=== PATIENT | female | born 1970 | race Hispanic/Latino ===

== ENCOUNTER 2020-06-27 23:02 | Emergency (ER) | payer OTHER ==
[2020-06-27] MEDS ORDERED: MORPHINE SULFATE 4 MG/1ML SYG ONE (23:32)
[2020-06-27] MEDS ORDERED: ONDANSETRON HCL 4 MG/2 ML VIAL ONE (23:32)
[2020-06-27 23:39] LABS: BASOPHILS % (AUTO) 0.2 % (0.0-5.0); HEMATOCRIT 35.3 % (36-48); LYMPHOCYTES % (AUTO) 10.5 % (21.0-51.0); MEAN CORPUSCULAR HEMOGLOBIN 24.9 pg (27.0-33.0); MEAN CORPUSCULAR HGB CONC 31.7 g/dL (32.0-36.0); MEAN CORPUSCULAR VOLUME 78.4 fL (79-99); MONOCYTES % (AUTO) 9.5 % (3.0-13.0); NEUTROPHILS % (AUTO) 79.4 % (40.0-77.0); PLATELET COUNT (AUTO) 381 K/uL (130-400); RED CELL DISTRIBUTION WIDTH 13.7 % (11.0-15.5); WHITE BLOOD COUNT (AUTO) 13.3 K/uL (4.8-10.8)
[2020-06-27 23:39] LABS: APPEARANCE,URINE Clear (CLEAR); BILIRUBIN,URINE Negative (NEGATIVE); COLOR,URINE Yellow (YELLOW); GLUCOSE, URINE (UA) TRACE mg/dL (NEGATIVE); KETONES,URINE Trace mg/dL (NEGATIVE); LEUKOCYTE ESTERASE ,URINE Negative (NEGATIVE); NITRATE,URINE Negative (NEGATIVE); OCCULT BLOOD,URINE Large (NEGATIVE); PH,URINE 5.5 (5.0-8.0); PROTEIN,URINE Negative (NEGATIVE)
[2020-06-27 23:49] LABS: CREATININE 1.3 mg/dL (0.5-1.5)
[2020-06-27 23:49] LABS: HCG,QUAL RESULT NEGATIVE (NEGATIVE)
[2020-06-27 23:51] LABS: BACTERIA,URINE Rare /HPF (None Seen); MUCUS,URINE Few LPF (None Seen); SQUAMOUS EPITHELIAL CELL,UR Moderate /HPF (0-2)
[2020-06-27 23:54] LABS: ALBUMIN 3.9 g/dL (3.5-5.0); BILIRUBIN,TOTAL 0.2 mg/dL (0.2-1.0); TOTAL PROTEIN, SERUM 7.4 g/dL (6.0-8.3)
== END 2020-06-28 01:58 | disposition home or self-care (01) ==
LOC: EDH 23:02
DX: N20.0 Calculus of kidney (principal); K80.20 Calculus of gallbladder without cholecystitis without obstruction; K85.90 Acute pancreatitis without necrosis or infection, unspecified; I10 Essential (primary) hypertension; E11.9 Type 2 diabetes mellitus without complications; E78.00 Pure hypercholesterolemia, unspecified
CPT/HCPCS: 36415; 74176; 76705; 80053; 81001; 81025; 82150; 83690; 85025; 96374; 96375; 99285; J2270; J2405

== ENCOUNTER 2021-01-08 06:36 | Inpatient (IN) | payer MEDICAID, OTHER ==
[~2021-01-08] VITALS: Ht 152.4 cm; Wt 51.0 kg
[2021-01-08] VITALS (23 sets, daily range): BP systolic 125–158; BP diastolic 70–96
[2021-01-08] MEDS ORDERED: MORPHINE SULFATE 4 MG/1ML SYG ONE ×2 (07:20→11:38)
[2021-01-08] MEDS ORDERED: SODIUM CHLORIDE 0.9% 1000ML 1,000 ML IV ONE ×2 (07:21→11:34)
[2021-01-08 07:34] LABS: BASOPHILS % (AUTO) 0.1 % (0.0-5.0); EOSINOPHILS % (AUTO) 0.6 % (0.0-8.0); HEMATOCRIT 43.8 % (36-48); LYMPHOCYTES % (AUTO) 4.1 % (21.0-51.0); MEAN CORPUSCULAR HEMOGLOBIN 27.3 pg (27.0-33.0); MEAN CORPUSCULAR HGB CONC 32.9 g/dL (32.0-36.0); MEAN CORPUSCULAR VOLUME 83.1 fL (79-99); MONOCYTES % (AUTO) 5.6 % (3.0-13.0); NEUTROPHILS % (AUTO) 89.3 % (40.0-77.0); PLATELET COUNT (AUTO) 290 K/uL (130-400); RED BLOOD CELL COUNT(AUTO) 5.27 MIL/uL (4.00-5.50); RED CELL DISTRIBUTION WIDTH 17.4 % (11.0-15.5); WHITE BLOOD COUNT (AUTO) 14.3 K/uL (4.8-10.8)
[2021-01-08 07:34] LABS: APPEARANCE,URINE Clear (CLEAR); BILIRUBIN,URINE Negative (NEGATIVE); COLOR,URINE Dark Yellow (YELLOW); GLUCOSE, URINE (UA) TRACE mg/dL (NEGATIVE); KETONES,URINE Trace mg/dL (NEGATIVE); LEUKOCYTE ESTERASE ,URINE Small (NEGATIVE); NITRATE,URINE Negative (NEGATIVE); OCCULT BLOOD,URINE Negative (NEGATIVE); PH,URINE 7.5 (5.0-8.0); PROTEIN,URINE Negative (NEGATIVE)
[2021-01-08 07:45] LABS: HCG,QUAL RESULT NEGATIVE (NEGATIVE)
[2021-01-08 07:46] LABS: ALBUMIN 3.7 g/dL (3.5-5.0); BILIRUBIN,TOTAL 0.2 mg/dL (0.2-1.0); CREATININE 0.6 mg/dL (0.5-1.5); POTASSIUM 3.7 mmol/L (3.5-5.1); TOTAL PROTEIN, SERUM 6.9 g/dL (6.0-8.3)
[2021-01-08 07:48] LABS: BACTERIA,URINE Rare /HPF (None Seen); RBC,URINE 0-1 /HPF (0-1); SQUAMOUS EPITHELIAL CELL,UR Rare /HPF (0-2); WBC,URINE 0-1 /HPF (0-1)
[2021-01-08] MEDS ORDERED: ONDANSETRON HCL 4 MG/2 ML VIAL ONE ×2 (08:54→12:15)
[2021-01-08] MEDS ORDERED: ONDANSETRON HCL 4 MG/2 ML VIAL IV PRN (11:00)
[2021-01-08] MEDS: SODIUM CHLORIDE 0.9% 1000ML 1,000 ML IV SCH ×2 (11:00→21:00)
[2021-01-08] MEDS ORDERED: HYDRALAZINE HCL 20 MG/ML VIAL IV PRN (11:00)
[2021-01-08] MEDS ORDERED: MORPHINE SULFATE 4 MG/1ML SYG IV PRN (11:00)
[2021-01-08] MEDS ORDERED: ALBUTEROL SULFATE 0.083% 2.5 MG/3 ML INH IH PRN (11:00)
[2021-01-08] MEDS ORDERED: GLUCAGON 1MG KIT 1 MG ML IM PRN (11:15)
[2021-01-08] MEDS ORDERED: DEXTROSE 50%-WATER 50 ML DISP.SYRIN IV PRN (11:15)
[2021-01-08] MEDS: INSULIN HUMULIN R 100 UNIT/ML 3ML SQ SCH ×3 (11:30→20:58)
[2021-01-08] MEDS ORDERED: ZOSYN 3.375GM+NS 50ML 50 ML IV ONE (11:33)
[2021-01-08] MEDS ORDERED: HYDRALAZINE HCL 20 MG/ML VIAL ONE (11:33)
[2021-01-08] MEDS ORDERED: SODIUM CHLORIDE 0.9% 50 ML IV ONE (11:34)
[2021-01-08 11:38] LABS: HEMOGLOBIN A1C 7.6 % (4.0-6.0)
[2021-01-08] MEDS ORDERED: PROPOFOL 10 MG/ML 20ML VIAL IV ONE (12:15)
[2021-01-08] MEDS ORDERED: GLYCOPYRROLATE 1 MG/5 ML SYRINGE ONE (12:15)
[2021-01-08] MEDS ORDERED: LIDOCAINE PF 2% 5ML ABBOJECT ONE (12:15)
[2021-01-08] MEDS ORDERED: MIDAZOLAM HCL 1 MG/ML 2ML VIAL ONE (12:15)
[2021-01-08] MEDS ORDERED: DEXAMETHASONE SOD PHOSPHATE 10MG/ML 1ML VIAL ONE (12:15)
[2021-01-08] MEDS ORDERED: NEOSTIGMINE 5MG/5ML SYR IV ONE (12:15)
[2021-01-08] MEDS ORDERED: SUCCINYLCHOLINE CHLORIDE 20 MG/ML 10 ML VIAL ONE (12:15)
[2021-01-08] MEDS ORDERED: ROCURONIUM 10MG/1ML SYR 10 MG/ML ML ONE (12:16)
[2021-01-08] MEDS ORDERED: FENTANYL CITRATE PF 50 MCG/1 ML 2ML VIAL ONE (12:16)
[2021-01-08] MEDS: ZOSYN 3.375GM+NS 50ML 50 ML IV SCH ×2 (13:00→20:46)
[2021-01-08] MEDS ORDERED: BUPIVACAINE/PF 0.5% 30ML VIAL ONE (13:01)
[2021-01-08] MEDS ORDERED: ESMOLOL HCL 10 MG/ML 10 ML VIAL ONE (13:29)
[2021-01-08] MEDS ORDERED: MEPERIDINE-PF 25 MG/ML SYG ONE ×2 (14:08→14:23)
[2021-01-08] MEDS: FAMOTIDINE/PF 20 MG/2 ML VIAL IV SCH (20:46)
[2021-01-08] MEDS: ACETAMINOPHEN-CODEINE 300/30MG TAB PO PRN ×2 (20:46→20:47)
[2021-01-09 00:11] VITALS: BP 136/78
[2021-01-09 04:00] VITALS: BP 139/78
[2021-01-09] MEDS: ZOSYN 3.375GM+NS 50ML 50 ML IV SCH (05:16)
[2021-01-09 05:57] LABS: BASOPHILS % (AUTO) 0.1 % (0.0-5.0); EOSINOPHILS % (AUTO) 1.9 % (0.0-8.0); HEMATOCRIT 38.7 % (36-48); MEAN CORPUSCULAR HEMOGLOBIN 27.5 pg (27.0-33.0); MEAN CORPUSCULAR HGB CONC 32.6 g/dL (32.0-36.0); MEAN CORPUSCULAR VOLUME 84.5 fL (79-99); MONOCYTES % (AUTO) 7.4 % (3.0-13.0); NEUTROPHILS % (AUTO) 82.2 % (40.0-77.0); PLATELET COUNT (AUTO) 273 K/uL (130-400); RED BLOOD CELL COUNT(AUTO) 4.58 MIL/uL (4.00-5.50); RED CELL DISTRIBUTION WIDTH 17.7 % (11.0-15.5); WHITE BLOOD COUNT (AUTO) 7.8 K/uL (4.8-10.8)
[2021-01-09 06:25] LABS: ALBUMIN 3.2 g/dL (3.5-5.0); BILIRUBIN,TOTAL 0.2 mg/dL (0.2-1.0); CREATININE 0.5 mg/dL (0.5-1.5); POTASSIUM 3.1 mmol/L (3.5-5.1); TOTAL PROTEIN, SERUM 6.1 g/dL (6.0-8.3)
[2021-01-09] MEDS: INSULIN HUMULIN R 100 UNIT/ML 3ML SQ SCH ×2 (06:27→11:30)
[2021-01-09] MEDS: SODIUM CHLORIDE 0.9% 1000ML 1,000 ML IV SCH (06:28)
[2021-01-09 07:30] VITALS: BP 136/73
[2021-01-09] MEDS ORDERED: POTASSIUM CHLORIDE 10% ELIXIR 20 MEQ/15 ML UDCUP PO PRN (07:45)
[2021-01-09] MEDS ORDERED: POTASSIUM CHLORIDE 20MEQ/100ML 100 ML IV PRN ×2 (07:45)
[2021-01-09] MEDS ORDERED: POTASSIUM CHLORIDE 20 MEQ ERTAB PO PRN (07:45)
[2021-01-09] MEDS ORDERED: ENOXAPARIN SODIUM 40 MG/0.4 ML SYRINGE SQ SCH (09:00)
[2021-01-09] MEDS: FAMOTIDINE/PF 20 MG/2 ML VIAL IV SCH (10:07)
[2021-01-09 11:00] VITALS: BP 151/83
[2021-01-09] MEDS ORDERED: IBUP-2077 PO (12:02)
[2021-01-09] MEDS ORDERED: METF-444 PO (12:02)
[2021-01-09] MEDS ORDERED: METR-172 PO (12:02)
[2021-01-09] MEDS ORDERED: CIPR500T10 PO (12:02)
== END 2021-01-09 13:50 | disposition home or self-care (01) | DRG 419 ==
LOC: EDH 06:36 → EDHIP 06:37 → 3CH 15:15
PROVIDERS: ADMIT Family Medicine; ATTEND Family Medicine
PROC: 0FT44ZZ Resection of Gallbladder, Percutaneous Endoscopic Approach (ICD-10-PCS; principal; 2021-01-08 13:18)
DX: K80.00 Calculus of gallbladder with acute cholecystitis without obstruction (principal); E11.9 Type 2 diabetes mellitus without complications; I10 Essential (primary) hypertension; E78.00 Pure hypercholesterolemia, unspecified; K82.8 Other specified diseases of gallbladder
CPT/HCPCS: 36415; 76700; 80053; 81001; 81025; 82948; 83036; 83690; 84702; 85025; 87040; 94664; G0378; J0330; J0360; J1100; J1650; J1815; J2001; J2175; J2250; J2270; J2405; J2543; J2704; J2710; J3010; J3490; J7030

== ENCOUNTER → 2023-03-20 | Outpatient (CLI) | payer OTHER ==
[~2023-03-20] MED LIST: CIPR500T10 PO; IBUP-2077 PO; METF-444 PO; METR-172 PO
== END | disposition home or self-care (01) ==
LOC: RAH 13:49
PROVIDERS: ATTEND Internal Medicine
DX: M31.4 Aortic arch syndrome [Takayasu] (principal)
CPT/HCPCS: 93930

== ENCOUNTER → 2023-04-09 | Outpatient (CLI) | payer OTHER ==
[~2023-04-09] MED LIST changes: +IOHEXOL 350 MG/ML 100ML INFUS..BTL IV ONE
== END | disposition home or self-care (01) ==
LOC: RAH 09:16
PROVIDERS: ATTEND Internal Medicine
DX: E27.9 Disorder of adrenal gland, unspecified (principal); M31.4 Aortic arch syndrome [Takayasu]; M47.815 Spondylosis without myelopathy or radiculopathy, thoracolumbar region
CPT/HCPCS: 71275; Q9967

== ENCOUNTER → 2023-04-10 | Outpatient (CLI) | payer OTHER | END | disposition home or self-care (01) | LOC: RAH 09:16 | PROVIDERS: ATTEND Internal Medicine | DX: M31.4 Aortic arch syndrome [Takayasu] (principal); M47.812 Spondylosis without myelopathy or radiculopathy, cervical region | CPT/HCPCS: 70498; Q9967 ==

== ENCOUNTER → 2023-08-14 | Outpatient (CLI) | payer OTHER ==
[~2023-08-14] MED LIST changes: +AEC81 PO; +ATOR20TA65 PO; -CIPR500T10 PO; +DOXA8TAB81 PO; +FERR-72 PO; +FOLI0.8T22 PO; -IBUP-2077 PO; +INSU100V12 SQ; -IOHEXOL 350 MG/ML 100ML INFUS..BTL IV ONE; -METF-444 PO; -METR-172 PO; +SITA1TAB6 PO
== END | disposition home or self-care (01) ==
LOC: RAH 07:58
PROVIDERS: ATTEND Surgery
DX: N20.0 Calculus of kidney (principal); R10.9 Unspecified abdominal pain; M47.815 Spondylosis without myelopathy or radiculopathy, thoracolumbar region; R91.1 Solitary pulmonary nodule; Z90.49 Acquired absence of other specified parts of digestive tract
CPT/HCPCS: 74176

== ENCOUNTER 2024-07-20 19:47 | Emergency (ER) | payer BC, OTHER ==
[~2024-07-20] VITALS: Ht 152.4 cm; Wt 50.3 kg
[2024-07-20 19:50] VITALS: TEMP 98.1
[2024-07-20 20:00] VITALS: BP 135/71; PULSE 78; RESP 18; O2SAT 100
[2024-07-20] MEDS: HYDROcodone/acetaMINOPHEN 10/325 MG TAB PO ONE (20:05)
[2024-07-20] MEDS: ketOROlac 30MG VIAL (30MG/ML) IM ONE (20:05)
[2024-07-20] MEDS ORDERED: KETO10TA2 PO (21:01)
[2024-07-20] MEDS ORDERED: ACET-2079 PO (21:01)
--- NOTE | 2024-07-20 21:09 | ERN ---
General Chief Complaint: Mechanical Fall Stated Complaint: C/O PAIN TO LEFT ELBOW, LEFT FOREARM AFTER FALL Time Seen by MD: 19:56 Time Seen by Midlevel: 19:56 Source: patient History of Present Illness Initial Comments Patient is a 54-year-old female with no significant past medical history presenting to the ER following a mechanical ground level fall. Patient states she accidentally slipped and fell onto her left side. She reports a moderate amount of pain to her left elbow. She states she was unable to move it secondary to pain. Denies any head injury or loss of consciousness. Denies being on any blood thinners. Denies any other complaints at this time. Allergies: Coded Allergies: No Known Allergies (Unverified Allergy, Unknown, 01/08/21) Home Meds Active Scripts Ketorolac Tromethamine (Ketorolac Tromethamine) 10 Mg Tablet, 10 MG PO BID for 5 Days, #10 TAB Prov:WES ROTHMAN 07/20/24 Acetaminophen with Codeine (Acetaminophen-Cod #3 Tablet) 300 Mg-30 Mg Tablet, 1 TAB PO Q6HPRN PRN for pain for 7 Days, #28 TAB 0 Refills Prov:WES ROTHMAN 07/20/24 Insulin Detemir (Levemir) 100 Unit/Ml Vial, 40 UNIT SQ AM, #1 VIAL Prov:JULIANA HARRINGTON [facility] 07/03/23 Ferrous Sulfate (Ferrous Sulfate) 325 Mg (65 Mg Iron) Tablet, 325 MG PO BID, #1 TAB Prov:JULIANA HARRINGTONP 07/03/23 Sitagliptin Phos/Metformin HCl (Janumet 50-1,000 mg Tablet) 50 Mg-1,000 Mg Tablet, 1 EACH PO BID, #60 TAB Prov:JULIANA HARRINGTON [facility] 07/03/23 Reported Medications Doxazosin Mesylate (Doxazosin Mesylate) 8 Mg Tablet, 8 MG PO DAILY, TAB 05/22/23 Atorvastatin Calcium (Atorvastatin Calcium) 20 Mg Tablet, 20 MG PO DAILY, TAB 05/22/23 Folic Acid/Vitamin B Comp W-C (Lynne-Shoaib Tablet) 0.8 Mg Tablet, 0.8 MG PO DAILY, TAB 05/22/23 Aspirin (ASPIRIN 81 MG ECTAB) 81 Mg Ectab, 81 MG PO DAILY, TAB.EC 05/22/23 Past Medical History Past Medical History: Diabetes-Type II, Hypertension Medical History Other: ABD TUMOR Past Surgical History: Cholecystectomy Social History Social History: Negative ROS Dictation CONSTITUTIONAL: Negative except for HPI HEAD/FACE: Negative except for HPI EENT: Negative except for HPI RESPIRATORY: Negative except for HPI GASTROINTESTINAL/ABDOMINAL: Negative except for HPI GENITOURINARY: Negative except for HPI MUSCULOSKELETAL: Negative except for HPI INTEGUMENTARY: Negative except for HPI NEUROLOGICAL/PSYCH: Negative except for HPI HEMATOLOGIC/LYMPHATIC: Negative except for HPI All Systems Negative, Except as noted above. 13 point review of systems assessed and all negative except for above. Physical Exam Physical Exam Dictation Vital Signs reviewed General Appearance: Alert, oriented x 3, no acute distress, well developed, nourished. Head and Face: non-traumatic. Eyes: PERRL, pink conjunctivas, eyelid no trauma, anterior chamber with arcus senilis. Ears: Pinnas intact and no signs of trauma or erythema ear canals clear and no discharge TM no erythema Nose: No discharge, no bleeding. Oropharynx: Mouth normal, tongue pink, pharynx clear,no erythema, tonsils no exudates, no abscesses noted, mucous membrane moist Neck: Supple, non-tender, no thyromegaly, no masses, no JVD, no bruits Breast:Deferred Chest:No tenderness, no crepitus, no paradoxical movement, no retractions Lungs:Clear, well-ventilated, symmetric, no rales, no wheezing, no rhonchi, no stridor, good breath sounds bilaterally Heart: Regular rate, regular rhythm, no murmur, no gallops Vascular: no peripheral edema, Abdomen: Soft, positive bowel sounds, nondistended, no guarding, nontender, no rebound, no masses no hepatomegaly, no splenomegaly, no Montenegro's sign, no hernias. Rectal: Deferred Genital: Deferred Neurological: Normal speech, motor function intact, sensory function intact Musculoskeletal: Neck nontender, full range of motion, back nontender, full range of motion, Extremities: Tenderness over the left lateral elbow, range of motion is restricted secondary to pain, there was no forearm deformity or tenderness, radial pulses intact, patient is able to make a fist with left hand, there was normal capillary refill to the left hand, left upper extremity is neurovascularly intact. Skin: Color pink, dry, no turgor, no rash, no lacerations, no abrasions, no contusions. Lymphatic: Deferred MDM MDM: Patient is a 54-year-old female with no significant past medical history presenting to the ER following a mechanical ground level fall. Patient states she accidentally slipped and fell onto her left side. She reports a moderate amount of pain to her left elbow. She states she was unable to move it secondary to pain. Denies any head injury or loss of consciousness. Denies being on any blood thinners. Denies any other complaints at this time. On physical examination there is tenderness over the left lateral elbow, range of motion is restricted secondary to pain, there was no forearm deformity or tenderness, radial pulses intact, patient is able to make a fist with left hand, there was normal capillary refill to the left hand, left upper extremity is neurovascularly intact. An x-ray was obtained of the left forearm and left elbow which shows a left radial head fracture. Management was based on the modified Acosta classification. Patient appears to have a type 2 fracture to the left radial head the left elbow was immobilized with a posterior long-arm splint and a sling and flexion. She was given a referral to orthopedic surgery for outpatient evaluation within the next 24-48 hours. Differential diagnosis: Fracture, contusion, dislocation There are no social concerns with this patient. Prescription drug management Prescriptions will include: Toradol and Tylenol with codeine Medical management and examination interpretation discussions were had by me with other qualified healthcare professionals as indicated for the patient's ca re. ED Course Orders Procedure Category Date Status Time Elbow Comp 3+Vws Lt RAD 07/20/24 Taken 19:55 Forearm 2vws Lt RAD 07/20/24 Taken 19:55 Hydrocodone/Apap PHA 07/20/24 Complete 10/325 Tab ([place]coe 10) 20:00 Ketorolac PHA 07/20/24 Complete Tromethamine 30mg/Ml 20:00 *Nursing CPOE 07/20/24 Transmitted Communication: 20:34 Current Medications Medications (Trade) Dose Ordered Sig/Anabella Route PRN Reason Start Time Stop Time Status Last Admin Dose Admin Acetaminophen/ Hydrocodone Bitart (NORco 10) 1 tab ONCE ONCE PO 07/20/24 20:00 07/20/24 20:01 DC 07/20/24 20:05 Ketorolac Tromethamine (toRADol) 30 mg ONCE ONCE IM 07/20/24 20:00 07/20/24 20:01 DC 07/20/24 20:05 Vital Signs Date Time Temp Pulse Resp B/P (MAP) Pulse Ox O2 Delivery O2 Flow Rate FiO2 07/20/24 19:50 98.1 83 18 177/90 99 Room Air DX & DISP Disposition: Discharge Departure Impression: Primary Impression: Left radial head fracture Condition: Stable Scripts Ketorolac Tromethamine (Ketorolac Tromethamine) 10 Mg Tablet 10 MG PO BID for 5 Days, #10 TAB Prov: WES ROTHMAN 07/20/24 Acetaminophen with Codeine (Acetaminophen-Cod #3 Tablet) 300 Mg-30 Mg Tablet 1 TAB PO Q6HPRN PRN for pain for 7 Days, #28 TAB 0 Refills Prov: WES ROTHMAN 07/20/24 Additional Instructions: Your x-ray reveals a fracture of the left radial head. You will need to follow up with an orthopedic surgeon within the next 24-48 hours. I have given you a prescription for Tylenol with codeine along with Toradol. I also want you to follow up with your primary care provider in 2-3 days for repeat evaluation. If you develop any new or worsening symptoms please report to the emergency department for further evaluation. Referrals: LISA CLARK (PCP) ADI DOBBS MD Time of Disposition: 20:59 I have reviewed the case, and I agree with, Diagnosis and Plan I performed the substantive portion of the visit. I have reviewed and personally made and approve the management plan that is documented in the note by myself or the EUGENE. I acknowledge for responsibility for the patient's management plan. WES ROTHMAN Jul 20, 2024 21:09
--- NOTE | 2024-07-21 08:53 | HMCIMG ---
ELBOW COMP 3+VWS LT REASON: INJURY TECHNIQUE: 3 views were obtained. FINDINGS: There is a fracture of the proximal neck of the radius. The radial head appears angulated laterally, the fracture may be compressed somewhat as well. Proximal ulna appears intact as does the distal left humerus. IMPRESSION: 1. Compressed and angulated fracture proximal neck of the left radius.
--- NOTE | 2024-07-21 08:59 | HMCIMG ---
FOREARM 2VWS LT REASON: INJURY TECHNIQUE: 2 views were obtained. FINDINGS: There is a fracture of the proximal neck of the left radius, mildly angulated, better seen on the elbow views. Radius and ulna appear otherwise unremarkable. Carpal bones appear normal as does the distal humerus. IMPRESSION: 1. Angulated fracture of the proximal left radial neck better seen on the elbow images.
== END 2024-07-20 21:39 | disposition home or self-care (01) ==
LOC: EDH 19:47
DX: S52.132A Displaced fracture of neck of left radius, initial encounter for closed fracture (principal); E11.9 Type 2 diabetes mellitus without complications; I10 Essential (primary) hypertension; Z79.82 Long term (current) use of aspirin; Z79.84 Long term (current) use of oral hypoglycemic drugs; Z79.899 Other long term (current) drug therapy; Z90.49 Acquired absence of other specified parts of digestive tract; W01.0XXA Fall on same level from slipping, tripping and stumbling without subsequent striking against object, initial encounter; Y93.89 Activity, other specified; Y92.89 Other specified places as the place of occurrence of the external cause; Y99.8 Other external cause status
CPT/HCPCS: 99284; 29105; 73080; 73090; 96372; J1885